=== PATIENT | female | born 1995 | race Caucasian/White ===

== ENCOUNTER 2018-04-13 22:34 | Emergency (ER) | payer SELFPAY ==
[~2018-04-13] VITALS: Ht 149.9 cm; Wt 69.2 kg
[2018-04-13 22:42] VITALS: Ht 149.9 cm; Wt 69.2 kg
[2018-04-14 00:49] VITALS: BP 112/69
== END 2018-04-14 00:49 | disposition home or self-care (01) ==
LOC: ED 22:34
DX: J45.901 Unspecified asthma with (acute) exacerbation (principal)
CPT/HCPCS: J2930; J7613; J7644; Q0162

== ENCOUNTER 2020-02-04 09:56 | Emergency (ER) | payer OTHER ==
[~2020-02-04] VITALS: Ht 149.9 cm; Wt 68.0 kg
[2020-02-04 10:26] VITALS: Ht 149.9 cm; Wt 68.0 kg
[2020-02-04 12:51] VITALS: BP 117/73
== END 2020-02-04 12:51 | disposition home or self-care (01) ==
LOC: ED 09:56
DX: J45.901 Unspecified asthma with (acute) exacerbation (principal)
CPT/HCPCS: J0171; J7512; J7613; J7644; Q0092

== ENCOUNTER 2020-02-05 19:14 | Emergency (ER) | payer OTHER, SELFPAY ==
[~2020-02-05] VITALS: Ht 149.9 cm; Wt 68.0 kg
[2020-02-05 21:19] VITALS: Ht 149.9 cm; Wt 68.0 kg
[2020-02-05 22:00] VITALS: BP 122/75
[2020-02-09] MEDS ORDERED: PROAIR HFA8.5 GM (00:39)
== END 2020-02-05 22:00 | disposition home or self-care (01) ==
LOC: ED 19:14
DX: M94.0 Chondrocostal junction syndrome [Tietze] (principal); J45.909 Unspecified asthma, uncomplicated
CPT/HCPCS: J1885